=== PATIENT | female | born 1970 | race Caucasian/White ===

== ENCOUNTER 2022-04-01 19:26 | Emergency (ER) | payer MEDICAID ==
[~2022-04-01] VITALS: Ht 121.9 cm; Wt 88.0 kg
[2022-04-01 19:49] VITALS: BP 220/130
[2022-04-01 20:42] LABS: ALBUMIN 3.6 g/dL (3.4-5.0); ANION GAP 12.3 (8-16); CARBON DIOXIDE 31.1 mmol/L (21-32); CREATININE 0.9 mg/dL (0.6-1.3); POTASSIUM 4.4 mmol/L (3.5-5.1); TOTAL BILIRUBIN 0.9 mg/dL (0.0-1.0)
[2022-04-01] MEDS ORDERED: hydrALAZINE 20 MG/ML VIAL IM ONE (21:55)
--- NOTE | 2022-04-01 22:21 | NUR ---
Called patient's name three times, in lobby and outside of ER lobby, no answer.
--- NOTE | 2022-04-01 22:21 | NUR ---
PATIENT LEFT WITHOUT BEING SEEN BY DR. Salgado. NO FURTHER CARE PROVIDED FOR PATIENT.
== END 2022-04-01 22:21 | disposition left against medical advice (07) ==
LOC: MED 19:26
DX: R03.0 Elevated blood-pressure reading, without diagnosis of hypertension (principal); Z53.21 Procedure and treatment not carried out due to patient leaving prior to being seen by health care provider
CPT/HCPCS: 36415; 80053; J0360

== ENCOUNTER 2022-04-06 17:06 | Emergency (ER) | payer MEDICAID ==
[~2022-04-06] VITALS: Ht 147.3 cm; Wt 89.4 kg
[2022-04-06 17:16] VITALS: BP 192/106
[2022-04-06 18:05] LABS: BASOPHILS # (AUTO) 0.1 K/uL (0.00-0.22); BASOPHILS % (AUTO) 1.3 % (0.0-2.0); EOSINOPHILS # (AUTO) 0.3 K/uL (0-0.4); EOSINOPHILS % (AUTO) 3.3 % (0.0-4.0); HEMATOCRIT 45.2 % (36-48); HEMOGLOBIN 14.9 g/dL (12.0-16.0); LYMPHOCYTES # (AUTO) 2.6 K/uL (2.5-16.5); LYMPHOCYTES % (AUTO) 33.5 % (20.5-51.1); MEAN CORPUSCULAR HEMOGLOBIN 28 pg (27-31); MEAN CORPUSCULAR HGB CONC 33 g/dL (33-37); MEAN CORPUSCULAR VOLUME 85.6 fL (80-94); MONOCYTES # (AUTO) 0.5 K/uL (0.8-1.0); MONOCYTES % (AUTO) 6.5 % (1.7-9.3); NEUTROPHILS # (AUTO) 4.3 K/uL (1.8-7.7); NEUTROPHILS % (AUTO) 55.4 % (42.2-75.2); PLATELET COUNT (AUTO) 179 K/uL (140-450); RED BLOOD CELL COUNT(AUTO) 5.28 MIL/uL (4.20-5.40); RED CELL DISTRIBUTION WIDTH 14.3 % (11.6-13.7); WHITE BLOOD COUNT (AUTO) 7.7 K/uL (4.8-10.8)
[2022-04-06 18:41] LABS: ALBUMIN 3.3 g/dL (3.4-5.0); ANION GAP 12.5 (8-16); ASPARTATE AMINOTRANSFERASE 28 U/L (15-37); CARBON DIOXIDE 26.8 mmol/L (21-32); CHLORIDE 107 mmol/L (98-107); CREATININE 0.8 mg/dL (0.6-1.3); GFR ARICAN-AMERICAN 98 mL/min (>90); GLUCOSE 90 mg/dL (74-106); POTASSIUM 4.3 mmol/L (3.5-5.1); SODIUM SERUM 142 mmol/L (136-145); TOTAL BILIRUBIN 0.4 mg/dL (0.0-1.0); UREA NITROGEN, BLOOD 21 mg/dL (7-18)
[2022-04-06] MEDS ORDERED: CEPH-588 PO (20:23)
[2022-04-06 20:33] VITALS: BP 177/96
== END 2022-04-06 20:36 | disposition home or self-care (01) ==
LOC: MED 17:06
DX: R07.89 Other chest pain (principal); I10 Essential (primary) hypertension; F41.9 Anxiety disorder, unspecified; Z79.899 Other long term (current) drug therapy
CPT/HCPCS: 36415; 71045; 80053; 81002; 81025; 84484; 85025; 85379; 93005; 99285; Q0092

== ENCOUNTER 2022-10-03 16:13 | Emergency (ER) | payer MEDICAID ==
[~2022-10-03] VITALS: Ht 152.4 cm; Wt 83.9 kg
[~2022-10-03 16:13] MED LIST: CEPH-588 PO
[2022-10-03 16:20] VITALS: BP 149/80
[2022-10-03] MEDS ORDERED: LIDOCAINE MPF 1% 10 MG/ML VIAL INJ ONE (18:30)
[2022-10-03] MEDS ORDERED: BACI-416 TP (20:36)
[2022-10-03] MEDS ORDERED: LIDOCAINE MPF 1% 5 ML ONE (20:36)
[2022-10-03] MEDS ORDERED: IBUP-2213 PO (20:36)
== END 2022-10-03 21:10 | disposition home or self-care (01) ==
LOC: MED 16:13
DX: S01.511A Laceration without foreign body of lip, initial encounter (principal); W54.0XXA Bitten by dog, initial encounter; Y93.89 Activity, other specified; Y92.89 Other specified places as the place of occurrence of the external cause; Y99.8 Other external cause status
CPT/HCPCS: 40650; 90471; 90715; 99284; J2001

== ENCOUNTER 2022-11-15 22:18 | Emergency (ER) | payer MEDICAID ==
[~2022-11-15] VITALS: Ht 149.9 cm; Wt 88.5 kg
[~2022-11-15 22:18] MED LIST changes: +BACI-416 TP; +IBUP-2213 PO
[2022-11-15 22:25] VITALS: BP 150/98
--- NOTE | 2022-11-15 22:28 | NUR ---
to lobby a/w bed ambulatory
--- NOTE | 2022-11-15 22:55 | NUR ---
seen and examined by DIONE
[2022-11-15] MEDS ORDERED: AMOXIL/CLAVULANATE 875/125 MG 1 TAB PO ONE (23:00)
[2022-11-15] MEDS ORDERED: IBUP-1842 PO (23:02)
[2022-11-15] MEDS ORDERED: AMOX-999 PO (23:02)
[2022-11-15] MEDS ORDERED: OFLOS RIGHT EYE (23:02)
--- NOTE | 2022-11-15 23:12 | NUR ---
Patient discharged with v/s stable. Written and verbal after care instructions given and explained. Patient verbalized understanding. Ambulatory with steady gait. All questions addressed prior to discharge. Advised to follow up with PMD.
[2022-11-15] MEDS ORDERED: CLIN300C52 PO (23:30)
== END 2022-11-15 23:12 | disposition home or self-care (01) ==
LOC: MED 22:18
DX: L03.213 Periorbital cellulitis (principal); Z79.899 Other long term (current) drug therapy
CPT/HCPCS: 99283

== ENCOUNTER 2023-02-19 01:40 | Emergency (ER) | payer MEDICAID ==
[~2023-02-19] VITALS: Ht 149.9 cm; Wt 86.2 kg
[~2023-02-19 01:40] MED LIST changes: +AMOX-999 PO; -BACI-416 TP; +BACI-418 TP; +CLIN300C52 PO; +IBUP-1842 PO; +OFLOS RIGHT EYE
[2023-02-19 01:59] VITALS: BP 117/77; PULSE 62; RESP 16; TEMP 97.5; O2SAT 99
[2023-02-19] MEDS ORDERED: predniSONE 20 MG TAB PO ONE (03:00)
[2023-02-19] MEDS ORDERED: diphenhydrAMINE 50 MG CAP PO ONE (03:00)
[2023-02-19] MEDS ORDERED: PRED20TA5 PO (03:44)
[2023-02-19] MEDS ORDERED: DIPH25TA53 PO (03:44)
[2023-02-19 03:59] VITALS: BP 129/86; PULSE 70; RESP 17; O2SAT 99
== END 2023-02-19 03:59 | disposition home or self-care (01) ==
LOC: MED 01:40
DX: L23.9 Allergic contact dermatitis, unspecified cause (principal); R06.00 Dyspnea, unspecified; I10 Essential (primary) hypertension; Z79.899 Other long term (current) drug therapy
CPT/HCPCS: 99283; J7512; Q0163

== ENCOUNTER 2023-07-05 11:11 | Emergency (ER) | payer MEDICAID ==
[~2023-07-05] VITALS: Ht 149.9 cm; Wt 89.4 kg
[~2023-07-05 11:11] MED LIST changes: +DIPH25TA53 PO; +PRED20TA5 PO
[2023-07-05 11:24] VITALS: BP 142/99; PULSE 73; RESP 20; TEMP 97.8; O2SAT 99
[2023-07-05 13:05] LABS: BASOPHILS # (AUTO) 0.1 K/uL (0.00-0.22); BASOPHILS % (AUTO) 1.1 % (0.0-2.0); EOSINOPHILS # (AUTO) 0.2 K/uL (0-0.4); EOSINOPHILS % (AUTO) 2.6 % (0.0-4.0); HEMATOCRIT 45.9 % (36-48); HEMOGLOBIN 15.4 g/dL (12.0-16.0); LYMPHOCYTES # (AUTO) 1.9 K/uL (2.5-16.5); LYMPHOCYTES % (AUTO) 23.8 % (20.5-51.1); MEAN CORPUSCULAR HEMOGLOBIN 28 pg (27-31); MEAN CORPUSCULAR HGB CONC 34 g/dL (33-37); MEAN CORPUSCULAR VOLUME 84.5 fL (80-94); MONOCYTES # (AUTO) 0.6 K/uL (0.8-1.0); MONOCYTES % (AUTO) 8.2 % (1.7-9.3); NEUTROPHILS # (AUTO) 5.1 K/uL (1.8-7.7); NEUTROPHILS % (AUTO) 64.3 % (42.2-75.2); PLATELET COUNT (AUTO) 181 K/uL (140-450); RED BLOOD CELL COUNT(AUTO) 5.43 MIL/uL (4.20-5.40); RED CELL DISTRIBUTION WIDTH 14.1 % (11.6-13.7); WHITE BLOOD COUNT (AUTO) 7.9 K/uL (4.8-10.8)
[2023-07-05 13:14] LABS: ANION GAP 9.6 (8-16); CARBON DIOXIDE 31.2 mmol/L (21-32); POTASSIUM 3.8 mmol/L (3.5-5.1)
[2023-07-05] MEDS ORDERED: AMOX1TAB8 PO (14:45)
[2023-07-05] MEDS ORDERED: NAPR-54 PO (14:46)
[2023-07-05 15:25] VITALS: BP 142/99; PULSE 73; RESP 20; TEMP 97.8; O2SAT 99
== END 2023-07-05 15:25 | disposition home or self-care (01) ==
LOC: MED 11:11
DX: L03.213 Periorbital cellulitis (principal); Z79.899 Other long term (current) drug therapy
CPT/HCPCS: 36415; 70481; 80048; 85025; 85651; 86140; 99285; Q9967

== ENCOUNTER 2023-11-06 17:51 | Emergency (ER) | payer MEDICAID ==
[~2023-11-06] VITALS: Ht 149.9 cm; Wt 89.8 kg
[~2023-11-06 17:51] MED LIST changes: +AMOX1TAB8 PO; +NAPR-337 PO
[2023-11-06 17:59] VITALS: BP 138/69; PULSE 64; RESP 20; TEMP 98.9; O2SAT 89
[2023-11-06] MEDS ORDERED: ATA25 PO (18:50)
[2023-11-06] MEDS: FUROSEMIDE 40 MG/4 ML VIAL IVP ONE (19:07)
[2023-11-06 21:37] VITALS: BP 107/73; PULSE 60; RESP 20; TEMP 98.6; O2SAT 87
== END 2023-11-06 21:35 | disposition home or self-care (01) ==
LOC: MED 17:51
DX: R06.02 Shortness of breath (principal); F41.9 Anxiety disorder, unspecified; Z79.899 Other long term (current) drug therapy
CPT/HCPCS: 51702; 71045; 96374; 99285; J1940